=== PATIENT | male | born 1960 | race Caucasian/White ===

== ENCOUNTER → 2017-12-18 | Outpatient (CLI) | payer OTHER | END | disposition home or self-care (01) | LOC: RAD 10:59 | DX: R06.02 Shortness of breath (principal); R05 Cough | CPT/HCPCS: 71046 ==

== ENCOUNTER 2019-09-08 11:25 | Emergency (ER) | payer OTHER ==
[~2019-09-08] VITALS: Ht 193 cm; Wt 106.6 kg
[2019-09-08 11:52] VITALS: BP 145/72
[2019-09-08] MEDS ORDERED: fentaNYL PF VIAL 100 MCG/2 ML VIAL IM STA (12:00)
--- NOTE | 2019-09-08 12:04 | PHYS DOC ---
Past Medical History Past Medical History: CHF, Diverticulitis Past Surgical History: Other Additional Past Surgical Histo: bowel resection Alcohol Use: None Drug Use: None Adult General Chief Complaint Chief Complaint: PAIN CONTROL [facility] HPI Patient is a 59 year old male who presents with back pain has been ongoing for 3 and half months. The patient has sciatica bilaterally down both legs. The patient is seen Dr. Whitley, and had an MRI and has a surgery that is pending cardiac clearance. The patient cannot into her dairy clerk October 10. He is tried into the dairy clerk at . His pain is being managed as primary care doctor. Review of Systems Review of Systems Constitutional: Denies fever or chills [] Eyes: Denies change in visual acuity, redness, or eye pain [] HENT: Denies nasal congestion or sore throat [] Respiratory: Denies cough or shortness of breath [] Cardiovascular: No additional information not addressed in HPI [] GI: Denies abdominal pain, nausea, vomiting, bloody stools or diarrhea [] : Denies dysuria or hematuria [] Musculoskeletal: Reports back pain Integument: Denies rash or skin lesions [] Neurologic: Denies headache, focal weakness or sensory changes [] Endocrine: Denies polyuria or polydipsia [] Complete systems were reviewed and found to be within normal limits, except as documented in this note. Allergies Allergies Allergies Coded Allergies Type Severity Reaction Last Updated Verified Penicillins Adverse Reaction Intermediate "pass out" 07/15/15 No Physical Exam Physical Exam Constitutional: Well developed, well nourished, no acute distress, non-toxic appearance. [] HENT: Normocephalic, atraumatic, bilateral external ears normal, oropharynx moist, no oral exudates, nose normal. [] Eyes: PERRLA, EOMI, conjunctiva normal, no discharge. [] Neck: Normal range of motion, no tenderness, supple, no stridor. Skin: Warm, dry, no erythema, no rash. [] Back: No tenderness, no CVA tenderness. [] Extremities: No tenderness, no cyanosis, no clubbing, ROM intact, no edema. [] Neurologic: Alert and oriented X 3, normal motor function, normal sensory function, no focal deficits noted. [] Psychologic: Affect normal, judgement normal, mood normal. [] Current Patient Data Vital Signs Vital Signs Date Time Temp Pulse Resp B/P (MAP) Pulse Ox O2 Delivery O2 Flow Rate FiO2 09/08/19 11:52 97.5 85 18 145/72 (96) 92 Room Air 97.5 EKG EKG [] Radiology/Procedures Radiology/Procedures [] Course & Med Decision Making Course & Med Decision Making Pertinent Labs and Imaging studies reviewed. (See chart for details) Discussed with patient. Offered to refer him to dairy clerk here at [place]. Will give IM Fentanyl. Patient was given a 30 day supply of [place] on 08/26. Recommended having primary care doctor continue to manage pain. Dragon Disclaimer Dragon Disclaimer This electronic medical record was generated, in whole or in part, using a voice recognition dictation system. Departure Departure Impression: Primary Impression: Back pain Disposition: HOME, SELF-CARE Condition: STABLE Referrals: BERNARDA METZGER MD (PCP) GUILLERMO SOTELO MD Patient Instructions: Back Pain, Adult Additional Instructions: Thank you for visiting [facility]. We appreciate you trusting us with your care. If any additional problems come up don't hesitate to return to visit us. Please follow up with your primary care provider so they can plan additional care if needed and know about the problem that you had. If symptoms worsen come back to the Emergency Department. Any concerning symptoms that start such as chest pain, shortness of air, weakness or numbness on one side of the body, running high fevers or any other concerning symptoms return to the ER. Problem Qualifiers Primary Impression: Back pain Back pain location: low back pain Chronicity: acute Back pain laterality: bilateral Sciatica presence: with sciatica Sciatica laterality: bilateral sciatica Qualified Codes: M54.42 - Lumbago with sciatica, left side; M54.41 - Lumbago with sciatica, right side JOHNNY ANDERSON APRN Sep 08, 2019 12:04
== END 2019-09-08 12:39 | disposition home or self-care (01) ==
LOC: ER 11:25
DX: M54.42 Lumbago with sciatica, left side (principal); M54.41 Lumbago with sciatica, right side; I50.9 Heart failure, unspecified; Z98.890 Other specified postprocedural states
CPT/HCPCS: 96372; 99283; J3010

== ENCOUNTER → 2019-09-29 | Outpatient (CLI) | payer OTHER ==
[2019-09-08 11:52] VITALS: BP 145/72
[~2019-09-29] MED LIST: ASPI81TA50 PO; ATOR10TA60 PO; FENO160T PO; HYDR-2769 PO; MELA10CA PO; MONT10TA49 PO; NABU750T PO; SPIR25TA5 PO; TIZA4TAB2 PO; VALIUM10 MG PO
[2019-09-29 13:17] LABS: BASO # 0.1 x10^3/uL (0.0-0.2); BASO % 1 % (0-3); EOS # 0.3 x10^3/uL (0.0-0.7); EOS % 6 % (0-3); HEMOGLOBIN 15.9 g/dL (13.0-17.5); LYMPH # 1.8 x10^3/uL (1.0-4.8); LYMPH % 32 % (24-48); MEAN CORPUSCULAR HEMOGLOBIN 31 pg (25-35); MEAN CORPUSCULAR HGB CONC 35 g/dL (31-37); MEAN CORPUSCULAR VOLUME 91 fL (79-100); MONO # 0.4 x10^3/uL (0.0-1.1); MONO % 8 % (0-9); NEUT % 53 % (31-73); PLATELET COUNT 240 x10^3/uL (140-400); RED BLOOD COUNT 5.08 x10^6/uL (4.30-5.70); RED CELL DISTRIBUTION WIDTH 12.8 % (11.5-14.5); WHITE BLOOD COUNT 5.7 x10^3/uL (4.0-11.0)
[2019-09-29 13:31] LABS: ALBUMIN 4.2 g/dL (3.4-5.0); ALBUMIN/GLOBULIN RATIO 1.3 (1.0-1.7); CALCIUM 8.9 mg/dL (8.5-10.1); GFR 76.5; TOTAL BILIRUBIN 0.3 mg/dL (0.2-1.0); TOTAL PROTEIN 7.5 g/dL (6.4-8.2)
== END | disposition home or self-care (01) ==
LOC: SURGPAT 11:58
PROVIDERS: ATTEND Neurological Surgery
DX: Z01.818 Encounter for other preprocedural examination (principal); M48.062 Spinal stenosis, lumbar region with neurogenic claudication; I50.9 Heart failure, unspecified; Z88.0 Allergy status to penicillin; Z98.890 Other specified postprocedural states
CPT/HCPCS: 36415; 80053; 85025; 87641

== ENCOUNTER 2019-10-09 10:31 | Observation (INO) | payer OTHER ==
[2019-10-09] VITALS (9 sets, daily range): BP systolic 112–153; BP diastolic 72–95
[~2019-10-09] VITALS: Ht 193 cm; Wt 104.9 kg
--- NOTE | 2019-10-09 06:55 | HP ---
ADMIT DATE: 10/09/2019. HISTORY OF PRESENT ILLNESS: The patient is a pleasant 59-year-old who has problems with low back pain and pain which radiates into his left buttock, hip, anterolateral thigh and leg. The problem has been present for about 3 months. He said it began after lifting at toilet. He said initially he had a lot of back pain, but the back pain improved. He then developed more significant problems in his leg. He feels as though there is weakness in his left leg and says that he is unsteady. He feels as though the left leg might buckle. The pain is severe and he rates it as a 10/10. Walking, sitting or lying down is associated with pain. Heat seems to help him. He has been taking Gustine 10. PAST MEDICAL HISTORY: Asthma, heart disease. PAST SURGICAL HISTORY: Appendectomy in 1998 and perforated colon in 2013. FAMILY HISTORY: Cancer. SOCIAL HISTORY: Self-employed. . Rarely exercises. Denies substance abuse. Denies tobacco use. Drinks coffee and tea daily. ALLERGIES: PENICILLIN. CURRENT MEDICATIONS: Cholesterol, diazepam, Gustine, fiber, multivitamin. REVIEW OF SYSTEMS: A 12-point review of systems was obtained and noncontributory except that mentioned above. PHYSICAL EXAMINATION: NEUROSURGERY EXAMINATION: GENERAL APPEARANCE: Alert, pleasant, no acute distress. HEAD: Normocephalic and atraumatic. SKIN: Warm and dry. MUSCULOSKELETAL: Lumbar paraspinal muscle bulk is normal, restricted range of motion of the lumbar spine, [id number] tenderness of the lower lumbar spine with palpation, normal range of motion of the lower extremities bilaterally. EXTREMITIES: No clubbing, cyanosis or edema. NEUROLOGIC: Alert and oriented x 3, normal recent and remote memory, strength 5/5 in bilateral lower extremities except for 4+/5 left quadriceps, sensory was intact to light touch in bilateral lower extremities, reflexes are trace and symmetric in lower extremities bilaterally, and straight leg raising positive on the left with left posterior leg. Pain relieved with Lasegue's maneuver. Negative straight leg raising on the right, antalgic gait favoring his left leg. IMAGING: I reviewed a lumbar MRI scan from 07/21/2019. On that study at L2-L3, there is severe lumbar spinal stenosis along with synovial cyst. At L3-L4, there is severe central spinal stenosis and bilateral neural foraminal narrowing. ASSESSMENT/ PLAN: I believe that problems at L2-L3 and L3-L4 are responsible for the majority of his pain. I recommended a left direct laminectomy at L2-L3 and a hemilaminotomy and microdecompression at L3-L4. I discussed with him the surgery and the risks and the expected postoperative course. He understands. He would like to go ahead. We will make the arrangements. BERNARDA METZGER MD DR: JUANPABLO/richard JOB#: [id number] / [id number] ZOILA
[~2019-10-09 10:31] MED LIST changes: +BACITRACIN 50,000 UNIT in IV NORMAL SALINE 1000ML BAG 1,000 ML IRR ONE; +BUPIVACAINE-EPI 0.5%-1:200000 MPF 30 ML VIAL. INJ ONE; +GLYCOPYRROLATE 1 MG/5 ML VIAL. ONE; +HYDROmorphone 2 MG/ML VIAL IV PRN; +IV RINGERS,LACTATED 1000ML 1,000 ML IV SCH; +KETOROLAC 60 MG/2 ML VIAL. ONE; +MIDAZOLAM HCL/PF 2 MG/2 ML VIAL. ONE; +MORPHINE SULFATE 2 MG/ML VIAL. IV PRN; +ONDANSETRON PF 4 MG/2 ML VIAL. IV PRN; +PROCHLORPERAZINE 10 MG/2 ML VIAL. IV PRN; +REMIFENTANIL 2 MG VIAL. IV ONE; +ROCURONIUM 50 MG/5 ML VIAL. ONE; +THROMBIN TOPICAL 20,000 UNIT SPRAY.SYRN KIT TP ONE; +VANCOMYCIN 1GM IVPB FOR OMNI 250 ML IV PRN; +fentaNYL PF VIAL 100 MCG/2 ML VIAL IV PRN
[2019-10-09] MEDS ORDERED: ONDANSETRON PF 4 MG/2 ML VIAL. ONE (10:32)
[2019-10-09] MEDS ORDERED: PROPOFOL 50 ML IV ONE ×3 (10:32→14:55)
[2019-10-09] MEDS ORDERED: DESFLURANE > 120 MINUTES IH ONE (10:32)
[2019-10-09] MEDS ORDERED: PROPOFOL 20 ML IV ONE (10:32)
[2019-10-09] MEDS ORDERED: KETOROLAC 30 MG/ML VIAL. ONE (10:32)
[2019-10-09] MEDS ORDERED: PHENYLEPHRINE 10 MG/ML VIAL. ONE (10:32)
[2019-10-09] MEDS ORDERED: DEXAMETHASONE SOD PHOS 20 MG/5 ML VIAL. ONE (10:32)
[2019-10-09] MEDS ORDERED: LIDOCAINE 2% PF 5 ML VIAL. ONE (10:45)
[2019-10-09] MEDS ORDERED: GELATIN SPONGE SIZE 12-7MM SPONGE. TP ONE ×6 (13:28→15:19)
[2019-10-09] MEDS ORDERED: NEOSTIGMINE METHYLSULFATE 5 MG/5 ML SYRINGE. ONE (14:08)
[2019-10-09] MEDS ORDERED: REMIFENTANIL 1 MG VIAL. IV ONE (14:54)
[2019-10-09] MEDS ORDERED: POTASSIUM CL 20MEQ D5-0.45NACL 1,000 ML IV SCH (15:47)
[2019-10-09] MEDS ORDERED: CALCIUM CARBONATE 500 MG TAB.CHEW PO PRN (16:00)
[2019-10-09] MEDS ORDERED: fentaNYL PF VIAL 100 MCG/2 ML VIAL IVP PRN (16:00)
[2019-10-09] MEDS ORDERED: MAGNESIUM HYDROXIDE 2,400 MG/30 ML ORAL.SUSP. PO PRN (16:00)
[2019-10-09] MEDS ORDERED: NALOXONE 0.4 MG/ML VIAL. IV PRN (16:00)
[2019-10-09] MEDS ORDERED: MAG HYDROX/ALUMINUM HYD/SIMETH 30 ML ORAL.SUSP PO PRN (16:00)
[2019-10-09] MEDS ORDERED: ACETAMINOPHEN 325 MG TABLET. PO PRN (16:00)
[2019-10-09] MEDS ORDERED: oxyCODONE/APAP 5/325 1 TAB TABLET PO PRN (16:00)
[2019-10-09] MEDS ORDERED: 0.9 % SODIUM CHLORIDE 10 ML DISP.SYRIN. IV PRN (16:00)
[2019-10-09] MEDS ORDERED: ONDANSETRON PF 4 MG/2 ML VIAL. IVP PRN (16:00)
[2019-10-09] MEDS ORDERED: diphenhydrAMINE HCL 25 MG CAPSULE PO PRN (16:00)
[2019-10-09] MEDS: oxyCODONE/APAP 5/325 1 TAB TABLET PO PRN ×2 (18:05→22:06)
[2019-10-09] MEDS: tiZANidine 4 MG TABLET. PO SCH (20:47)
[2019-10-09] MEDS: diazePAM 5 MG TABLET PO SCH (20:47)
[2019-10-09] MEDS: DOCUSATE SODIUM 100 MG CAPSULE. PO SCH (20:47)
[2019-10-09] MEDS ORDERED: MONTELUKAST SODIUM 10 MG TABLET. PO SCH (21:00)
[2019-10-09] MEDS ORDERED: ATORVASTATIN CALCIUM 10 MG TABLET. PO SCH (21:00)
[2019-10-09] MEDS ORDERED: NON FORMULARY ITEM (Melatonin 1 CAP) PO SCH (21:00)
[2019-10-10 03:00] VITALS: BP 121/67
[2019-10-10] MEDS ORDERED: DOCU-153 PO (05:50)
[2019-10-10] MEDS ORDERED: OXYC1TAB15 PO (05:50)
[2019-10-10] MEDS: oxyCODONE/APAP 5/325 1 TAB TABLET PO PRN (05:52)
--- NOTE | 2019-10-10 05:52 | DISCH ---
DISCHARGE INSTRUCTIONS Condition on Discharge Condition on Discharge: Stable Activity After Discharge Activity Instructions for Disc: Activity as tolerated, Avoid exertion Other activity instructions: no driving for a week Bathing Instructions: Shower-keep dressing dry Lifting Instructions after Dis: No heavy lifting, No pulling or pushing, Do not lift >10 pounds Diet after Discharge Diet after Discharge: Cardiac Wound Incision Care Wound/Incision Care: Ice to area for comfort Other wound/incision instructi: may remove dressing in 48 hours if dry then may shower, no soaking Contacting the after DC Call your doctor for: Concerns you may have Follow-Up Follow up with: Dr. Metzger's nurse in 2 weeks [phone] BERNARDA METZGER MD Oct 10, 2019 05:52
[2019-10-10 07:00] VITALS: BP 127/82
[2019-10-10] MEDS: DOCUSATE SODIUM 100 MG CAPSULE. PO SCH (08:53)
[2019-10-10] MEDS: tiZANidine 4 MG TABLET. PO SCH (08:53)
[2019-10-10] MEDS: diazePAM 5 MG TABLET PO SCH (08:53)
[2019-10-10] MEDS ORDERED: MELOXICAM 7.5 MG TABLET PO SCH (09:00)
[2019-10-10] MEDS ORDERED: SPIRONOLACTONE 25 MG TABLET PO SCH (09:00)
[2019-10-10] MEDS ORDERED: ASPIRIN ENTERIC COATED 81 MG TABLET.DR. PO SCH (09:00)
[2019-10-10] MEDS ORDERED: FENOFIBRATE,MICRONIZED 134 MG CAPSULE PO SCH (09:00)
--- NOTE | 2019-10-13 15:07 | PATHOLOGY ---
[facility] Accession Number: [id number] . 01 Material submitted: . vertebral column - LUMBAR DECOMPRESSION . 01 Clinical history: . Lumbar stenosis, neurogenic claudication. . 02 Diagnosis: Segments of fibrocartilaginous and skeletal muscle tissue and bone, lumbar decompression: - Degenerative changes of fibrocartilaginous tissue. LBQ 10/13/2019 1233 Local . 02 Comment: There is no evidence of an acute inflammatory process or malignancy. (JPM/db; 10/13/2019) . 02 Electronically signed: . Todd Jolly MD, Pathologist NPI- [id number] . 01 Gross description: . Received in formalin labeled "Solitario, Radha, lumbar decompression" is a 4.5 x 4.0 x 1.0 cm aggregate of monge-white soft tissue and monge-white bony tissue fragments. [employer] Beauty Advisor tissue is submitted in cassette A1 following decalcification. ([facility]; 10/12/2019) SYC/SYC 10/13/2019 1231 Local . 02 Pathologist provided ICD-10: M99.73 . 02 CPT . 107564, 363350 Specimen Comment: A courtesy copy of this report has been sent to [phone], [phone] Specimen Comment: [phone] Specimen Comment: Report sent to / DR AC Performed at: 01 [facility] [address], [place] [id number] MD Ry Botello MD Phone: [phone] Performed at: 02 [facility] [address], [place] [id number] MD Todd Jolly MD Phone: [phone]
--- NOTE | 2019-10-16 19:44 | OP ---
DATE OF SURGERY: 10/09/2019 PREOPERATIVE DIAGNOSES: Lumbar spinal stenosis and lumbar radiculopathy, L2-L3, L3-L4. OPERATION PERFORMED: 1. Hemilaminotomy with decompression of dura and nerve root, left L2-L3. 2. Left direct laminectomy L3-L4 with decompression of spinal canal. SURGEON: David Metzger M.D. SYSTEMS DEVELOPMENT CONSULTANT: JEFFREY Chacon who assisted with the exposure, the microdecompression at both levels as well as the closure. The operation was done with EMG monitoring, SSEP monitoring, fluoroscopy, microscopic dissection. OPERATIVE INDICATIONS: The patient is a very pleasant 59-year-old who developed intractable back and left leg pain, which failed conservative measures. On imaging studies, he was found to have degenerative problems at L2-L3 with severe lateral stenosis and a possible synovial cyst and at L3-L4 he had very severe spinal stenosis. I recommended the above-mentioned surgery. He understood the surgery and the risks and wished to go ahead. DESCRIPTION OF PROCEDURE: Following general endotracheal anesthesia, the patient was positioned prone on the [place] table. Lumbar region was prepped and draped in standard fashion. JALEEL hose and AV impulse boots were applied for DVT prophylaxis. The microscope was draped. Fluoroscopy was draped and brought into field. Monitoring was established. Vancomycin 1 gram was given prior to surgery. Using fluoroscopic guidance, incision was made from upper L2 to inferior L4, I dissected down through skin and subcutaneous tissue, reflected the paraspinal muscles and placed a [place] microdisk retractor. I directed my attention to L2-L3 and burred down a very generous hemilaminotomy. I carried this just to the midline and then out laterally and then peeled away very thickened ligamentum flavum, which was somewhat scarred to the underlying dura, but it was possible to remove it. I fully decompressed the entire region performing a partial foraminotomy. At L3-L4, I performed a virtually identical operation except that I took more bone medially and created a left direct laminectomy and then began to peel away the ligamentum flavum and found that it was densely scarred to the underlying dura. Where I could I trimmed this material away. Otherwise, I thinned the scarred ligamentum down to what was quite thin and was able to get a tremendous decompression with the dural contents moving posteriorly significantly. I did perform partial foraminotomy and then irrigated copiously with antibiotic solution. I did use bone wax where necessary as well as bipolar cautery. After hemostasis had been obtained, I irrigated and then removed the retractors, obtained hemostasis in the muscle and I closed the wound in layers with absorbable suture and the skin was closed with a 4-0 subcuticular stitch. The operation went very well and the patient was taken to recovery room in excellent condition with normal strength in his extremities. I was quite pleased with the surgery. DAVID METZGER MD DR: JUANPABLO/richard JOB#: [id number] / [id number] ZOILA
== END 2019-10-10 09:15 | disposition home or self-care (01) ==
LOC: SURG 10:31 → 4 NORTH 15:55
PROVIDERS: ADMIT Neurological Surgery; ATTEND Neurological Surgery
DX: M48.061 Spinal stenosis, lumbar region without neurogenic claudication (principal); M54.16 Radiculopathy, lumbar region; J45.909 Unspecified asthma, uncomplicated; R07.9 Chest pain, unspecified; Z88.0 Allergy status to penicillin; Z79.899 Other long term (current) drug therapy; Z90.49 Acquired absence of other specified parts of digestive tract
CPT/HCPCS: 63047; 63048; 76000; 88304; 88311; A7015; G0378; G0379; J1100; J1885; J2001; J2250; J2405; J2704; J3370; J3490; J7030; J2710